=== PATIENT | male | born 1950 | race Caucasian/White ===

== ENCOUNTER 2019-01-15 17:27 | Inpatient (IN) ==
[2019-01-15] MEDS ORDERED: DILAUDID IV ONE ×2 (17:53→21:25)
[2019-01-15] MEDS ORDERED: ZOFRAN IV ONE (17:54)
--- NOTE | 2019-01-15 17:59 | PROVIDER DOCUMENTATION ---
HPI-Abdominal Pain/GI Problem - General Chief Complaint: Abdominal Pain Stated Complaint: ABDOMINAL PAIN Time Seen by Provider: 01/15/19 17:36 Source: patient Allergies/Adverse Reactions: Patient Allergies Allergy/AdvReac Type Severity Reaction Status Date / Time morphine Allergy HIVES Verified 01/15/19 18:05 Home Medications: Home Medication List Medication Instructions Recorded Confirmed Last Taken Type ATORVAstatin [Lipitor] 40 mg PO DAILY 01/15/19 01/15/19 01/15/19 History Aspirin [Bonnie Chewable Aspirin] 81 mg PO DAILY 01/15/19 01/15/19 01/15/19 History Lisinopril 1 tab PO DAILY 01/15/19 01/15/19 01/15/19 History Metoprolol Tartrate 50 mg PO DAILY 01/15/19 01/15/19 01/15/19 History Pioglitazone HCl 1 tab PO DAILY 01/15/19 01/15/19 01/15/19 History Sitagliptin Phos/Metformin HCl 1 tab PO BID 01/15/19 01/15/19 01/15/19 History [Janumet 50-1,000 mg Tablet] - History of Present Illness-ABD Nature of Presenting Problems: Patient is a 68 yowm who complains of RUQ and LUQ abdominal pain described as "soreness" since Sunday. Denies n/v/d, fever. Also c/o productive cough with yellow sputum and states the pain in his abdomen is worse when he coughs. Started Z-Pack today. Denies any other symptoms. Pt is non-toxic in appearance. Pain Radiation: reports: other (Right axilla) Review of Systems - Adult - REVIEW OF SYSTEMS - ADULT Constitutional: reports: no symptoms reported. denies: chills, fever Eyes: reports: no symptoms reported Ears, Nose, Mouth & Throat: reports: no symptoms reported Cardiovascular: reports: no symptoms reported Respiratory: reports: see HPI, cough. denies: chronic cough, dyspnea on exertion, excessive sputum production, hemoptysis, pleurisy, shortness of breath, wheezing Gastrointestinal: reports: see HPI, abdominal pain. denies: diarrhea, nausea, vomiting Genitourinary: reports: no symptoms reported Musculoskeletal: reports: no symptoms reported Integumentary: reports: no symptoms reported Neurological: reports: no symptoms reported Psychiatric: reports: no symptoms reported Endocrine: reports: no symptoms reported Hematologic/Lymphatic: reports: no symptoms reported Allergic/Immunologic: reports: no symptoms reported All Other Systems: Reviewed and Negative Past History - Adult - PAST MEDICAL HISTORY-ADULT Review of Records: reports: Nursing Assessment Review, Medications Reviewed, Social history reviewed & non-contributory. Major Childhood Illnesses: reports: denies history Cardiovascular: reports: CAD, HTN Respiratory: reports: denies history Gastrointestinal: reports: cancer (rectal- colostomy) Obstetrical/Gynecological: reports: denies history Musculoskeletal: reports: denies history Neurological: reports: denies history Psychiatric: reports: denies history Endocrine/Immune: reports: Diabetes Other Conditions: reports: denies history - PRIOR SURGERIES/PROCEDURES Surgical/Procedure History: reports: back/neck, other (Open heart, colostomy) - FAMILY HISTORY Family History: reviewed, not pertinent - SOCIAL HISTORY Smoking: quit greater than 1 year Physical Exam-General - PHYSICAL EXAM-ADULT Initial Vital Signs Reviewed: Yes - CONSTITUTIONAL General Appearance: alert, no apparent distress. negative: lethargic, slow to respond - EYES Eyes: pink conjunctivae - HEAD, EARS, NOSE, MOUTH & THROAT HENMT: normocephalic/atraumatic, moist mucous membranes - NECK Neck: non-tender, full range of motion, supple, normal inspection - RESPIRATORY Respiratory: chest non-tender, lungs clear, normal breath sounds, no pleuratic chest pain, no respiratory distress, no accessory muscle use - CARDIOVASCULAR Cardiovascular: normal peripheral pulses, regular rate, rhythm, no edema, no gallop, no JVD, no murmur - GASTROINTESTINAL (ABDOMEN) Abdominal Exam: normal bowel sounds, soft, no organomegaly, no pulsatile mass, tenderness (RUQ and LUQ, more in RUQ), other (Obese abdomen). negative: disten ded, guarding, rigid, rebound, hernia, mass, hepatomegaly, splenomegaly - MUSCULOSKELETAL Back Exam: normal inspection Extremity: normal range of motion, non-tender, normal gait, normal inspection - SKIN Integumentary: normal color, warm/dry. negative: cyanosis, diaphoresis, jaundice, mottled, pallor - NEUROLOGIC Neurologic: grossly normal, no motor/sensory deficits - PSYCHIATRIC Psych/Mental Status: normal mood/affect, normal thought content, normal thought process, oriented x 3 Progress - PLAN OF CARE/RESULTS Progress/Plan/Lab Results: Vital Signs - 8 hr 01/15/19 17:29 Temperature 98.2 F Pulse Rate 83 Respiratory Rate 18 Blood Pressure 168/124 O2 Sat by Pulse Oximetry 96 Orders Category Date Time Status Saline Loc NOW Care 01/15/19 17:54 Active CHEST-2 VIEWS [RAD] Stat Exams 01/15/19 17:52 Ordered AMYLASE [CHEM] Stat Lab 01/15/19 17:52 Uncollected CBC WITH DIFF [HEME] Stat Lab 01/15/19 17:52 Uncollected COMPREHENSIVE METABOLIC PANEL [CHEM] Stat Lab 01/15/19 17:52 Uncollected LIPASE [CHEM] Stat Lab 01/15/19 17:52 Uncollected TROPONIN T Stat Lab 01/15/19 17:52 Uncollected Hydromorphone [Dilaudid] Med 01/15/19 17:53 Discontinued 1 mg IV NOW ONE Ondansetron [Zofran] Med 01/15/19 17:54 Discontinued 4 mg IV NOW ONE EKG [EKG] Stat Ther 01/15/19 17:52 Ordered Pt opted to be admitted. Admitting HPS paged ([id number]). Result Diagrams: 01/15/19 18:00 01/15/19 18:00 - CONSULTS/PCP/HOSPITALIST Notification #1 *Consult/PCP/Hospitalist*: Dr. Lang Time Discussed: 21:23 Reason/Comments: cholecystitis Consult Disposition: other (States to give pt option to be admitted or to be discharged and follow up with him in the office tomorrow. Md states if pt decides to be admitted to admit to [facility] and consult him.) #2 Consult: Dr. Delarosa Time Discussed: 21:38 Consult Disposition: Will see in ED, Admit Departure - Departure Date of Disposition Decision: 01/16/19 Time of Disposition Decision: 21:38 DIAGNOSIS: Cholecystitis, Kidney stone on right side Disposition: ADMITTED INPATIENT 09 Certified Medical Emergency: Emergent Condition: Stable - Critical Care Note This patient required my direct & personal management of CC.: No Attestation - Physician/ YEIMI Attestation Patient care was provided by Advanced Practice Provider:: Yes Advanced Practice Provider:: Arvin Diamond Advanced Practice Provider documentation review:: The Mid-level provider documentation, treatment plan and medical decision making was reviewed by the physician who agrees with all treatment and medical decision making by the MLP. The physician spent face to face time with patient:: No Advanced Practice Provider documentation review:: Supervising physician onsite and consulted in the evaluation and care of this patient. The physician did not have a face to face encounter with the patient.
[2019-01-15 18:17] LABS: BASO# 0.03 X1000 (0.0-0.2); BASO% 0.3 % (0.0-0.8); EOS# 0.27 X1000 (0.0-0.7); EOS% 2.6 % (0.0-10.0); HEMATOCRIT 50.5 % (42.0-52.0); HEMOGLOBIN 16.5 g/dL (14.0-18.0); LYMPH# 1.01 X1000 (1.2-3.4); LYMPH% 9.7 % (20.5-51.1); MCH 28.7 PG (27-31); MCHC 32.7 g/dL (33-37); MONO# 1.01 X1000 (0.11-0.59); MONO% 9.7 % (1.7-9.3); MPV 11.5 FL (7.4-10.4); NEUT# 8.08 X1000 (1.4-6.5); NEUT% 77.7 % (42.2-75.2); PLT 189 X1000 (130-400); RBC 5.74 XMIL (4.7-6.1); RDW 15.7 % (11.5-14.5)
[2019-01-15 18:55] LABS: AGAP 14; ALB/GLOB RATIO 1.6; ALBUMIN 4.2 g/dL (3.5-5.0); ALKALINE PHOSPHATASE 79 U/L (32-122); AMYLASE 77 U/L (20-200); BUN 21 mg/dL (8-22); CALCIUM 9.4 mg/dL (8.8-10.2); CHLORIDE 99 mmol/L (98-107); COSMO 276; CREATININE 1.1 mg/dL (0.7-1.2); ESTIMATED GFR > 60; GLUCOSE 177 mg/dL (70-104); GOT 23 U/L (10-34); GPT 26 U/L (10-44); LIPASE 34 U/L (13-60); POTASSIUM 4.5 mmol/L (3.5-5.1); SODIUM 134 mmol/L (136-145); TCO2 21 mmol/L (25-35); TOTAL BILIRUBIN 0.68 mg/dL (0.20-1.00); TOTAL PROTEIN 6.8 g/dL (6.3-8.3)
--- NOTE | 2019-01-15 19:25 | Diag Imaging Result Doc PS360 ---
CHEST-2 VIEWS - 01/15/2019 INDICATION: cough COMPARISON: None FINDINGS: The lungs are normally expanded and clear. Heart size and mediastinal contours are normal. No pneumothorax or pleural effusion. There are median sternotomy wires. IMPRESSION: Negative exam. Electronically signed by Luis Alberto Rodriguez 01/15/2019 7:23 PM
--- NOTE | 2019-01-15 20:56 | Diag Imaging Result Doc PS360 ---
CT ABD/PELVIS W/IV CONT ONLY - 01/15/2019 INDICATION: upper abd pain, RUQ tenderness COMPARISON: None FINDINGS: The lung bases are clear and the heart size is normal. There are some small stones in the gallbladder. There is hazy edema around the gallbladder. No biliary dilation. There is a left nephroureteral stent in good position. There is been rectal resection and there is a left lower quadrant colostomy. No bowel obstruction or inflammation. There is significant diverticulosis throughout the colon. There is an obstructing right UVJ stone measuring 5 mm. There is moderate right hydroureteronephrosis. There are also some small nonobstructing left renal stones measuring up to 3 mm. Normal appendix. Prostate gland is atrophic. Urinary bladder is grossly normal. There are moderate degenerative changes of the spine. No acute or suspicious bony lesion. IMPRESSION: 1. Gallstones in the gallbladder. Gallbladder inflammation consistent with cholecystitis. 2. Obstructing right UVJ stone with moderate hydronephrosis. 3. There are couple small nonobstructing left renal stones. Left nephroureteral stent in good position. This exam was performed using automated exposure control, adjustment of mA or kV according to patient size, and/or use of iterative reconstruction technique Electronically signed by Luis Alberto Rodriguez 01/15/2019 8:54 PM
[2019-01-15 22:26] LABS: URINE SOURCE CLEAN CATCH
[2019-01-15 23:16] LABS: BILIRUBIN URINE NEGATIVE (NEGATIVE); BLOOD URINE MODERATE (NEGATIVE); COLOR YELLOW; GLUCOSE URINE TRACE mg/dL (NEGATIVE); KETONE URINE NEGATIVE (NEGATIVE); LEUKOCYTES URINE MODERATE (NEGATIVE); NITRITE URINE NEGATIVE (NEGATIVE); PH URINE 5.5; PROTEIN URINE 50 mg/dL (NEGATIVE); SP GRAVITY URINE 1.024; TURBIDITY URINE CLEAR (CLEAR); UROBILINOGEN URINE NORMAL (NORMAL)
[2019-01-15 23:26] LABS: UR EPITHELIAL CELLS <10 /HPF (<10); URINE BACTERIA NEGATIVE /HPF; URINE RBC <10 /HPF (<10); URINE WBC 20-40 /HPF (<10)
[2019-01-15] MEDS ORDERED: TYLENOL PO PRN (23:28)
[2019-01-15] MEDS ORDERED: ZOFRAN IV PRN (23:28)
[2019-01-15 23:41] LABS: URINE CASTS NONE SEEN; URINE CRYSTALS NONE SEEN; URINE SMALL ROUND CELLS NONE SEEN; URINE YEAST NONE SEEN
[2019-01-16] MEDS: ZOSYN 3.375 GM in NS 50 ML IV SCH ×5 (00:04→22:04)
[2019-01-16] MEDS: NS 1,000 ML IV SCH ×2 (00:04→10:05)
--- NOTE | 2019-01-16 00:04 | HISTORY AND PHYSICAL ---
PRIMARY CARE PROVIDER: Dr. Hernández. UROLOGIST: Dr. Ordonez in [place]. ONCOLOGIST: Dr. Burrows. DISPENSARY ATTENDANT: Dr. Carlton. DATE AND TIME: 01/15/2019 at 2215. CHIEF COMPLAINT: Abdominal pain. HISTORY OF PRESENT ILLNESS: Mr. Russo is a 68-year-old male who complains of a 4-day history of right upper quadrant and left upper quadrant abdominal pain. He describes the pain as sharp as though he has been kicked in the stomach. He reports the pain is more constant now. He is reporting at this time that it does radiate down into his right lower quadrant as well as up and around to his right upper back in his right shoulder blade area. He denies any nausea, vomiting, or diarrhea, though he does have a colostomy bag and states he has been noticing that he is having more frequent output in his colostomy. Though he reports that his stools are dark brown in color, he denied them being black or bloody in appearance. The patient also reports that he has had a productive cough with yellow sputum and has been having some sinus congestion and upper respiratory symptoms. He was seen by his doctor today was given antibiotic of a Z-Eliseo though has not started this medicine yet. He does report that he has frequent hematuria though he states that Dr. Ordonez, urologist in [place] has been monitoring this and he does have his renal stent replaced periodically. He denies any dysuria. He denies any pain, numbness tingling or swelling in extremities. He denies any dizziness, lightheadedness, chest pain or shortness of breath. Upon evaluation in the ER, patient was noted to be having right upper quadrant pain, right lower quadrant pain which was radiating around to his right flank, right back and right shoulder blade. He did have right CVA tenderness noted. He also had right upper quadrant tenderness and positive Paulino's sign. He was also tender in the right lower quadrant as well. Given his symptoms, they did perform a CT abdomen and pelvis with IV contrast only which showed that he did have gallstones in the gallbladder. There was a gallbladder inflammation consistent with cholecystitis. There was obstructing right UVJ stone with moderate hydronephrosis. There were also a couple of small nonobstructing left renal stones though his left nephroureteral stent was noted to be in good position. Patient will be admitted for further treatment and evaluation. REVIEW OF SYSTEMS: A 14 point review of systems was conducted with the patient and all were negative except for pertinent positives mentioned in above HPI. PAST MEDICAL HISTORY: 1. History of colorectal cancer status post colon resection with colostomy placement. The patient reports that he did receive chemotherapy and radiation and is followed by Dr. Burrows for this. 2. Coronary artery disease status post 1 vessel coronary artery bypass graft. 3. Diabetes mellitus. 4. Hyperlipidemia. 5. Hypertension. 6. History of renal stones with a left nephroureteral stent. PAST SURGICAL HISTORY: 1. One vessel coronary artery bypass graft. 2. Bowel resection secondary to colorectal cancer with colostomy placement. 3. Back surgery. 4. Neck surgery. 5. Left nephroureteral stent placement. SOCIAL HISTORY: The patient is a former smoker. He quit smoking 10 years ago though did smoke from his young teenage years until that time. He did smoke up to 3 packs a day at 1 point. He reports only occasional alcohol use. There is no known illicit drug use. His family was present at bedside during our examination. FAMILY HISTORY: Positive for his mother having a history of heart disease. His father had a history of heart disease and did pass away from a myocardial infarction at age 68. He does have brothers and sisters who do have similar medical problems exam as him which include heart disease and diabetes mellitus. ALLERGIES: Patient reports allergies to morphine. HOME MEDICATIONS: 1. Aspirin 81 mg p.o. daily. 2. Atorvastatin 40 mg p.o. daily. 3. Lisinopril 10 mg p.o. daily. 4. Metoprolol tartrate 50 mg p.o. daily. 5. Pioglitazone 45 mg tablet p.o. daily. 6. Janumet mg tablet 1 tablet p.o. b.i.d. DIAGNOSTIC STUDIES: White blood cell count is 10,400, hemoglobin 16.5, hematocrit 50.5, platelet count is 189. Sodium 134, potassium 4.5, chloride 99, serum bicarb is 21, BUN 21, creatinine 1.1, glucose 177, calcium 9.4. Liver function tests within normal limits. Troponin was less than 0.01. Amylase 77, lipase 34. Urinalysis is pending at this time. Chest x-ray showed no acute abnormality. This was per Radiology. CT abdomen and pelvis did show gallstones in the gallbladder with gallbladder inflammation consistent with cholecystitis. There was an obstructing right UVJ stone with moderate hydronephrosis. There are also a couple of small nonobstructing left renal stones and a left nephroureteral stent which is in good position. PHYSICAL EXAMINATION: VITAL SIGNS: Temperature 98 degrees, heart rate 93, respirations 19, blood pressure is 156/76, oxygen saturation is 97% on room air. GENERAL: Mr. Russo is a pleasant 68-year-old male who is resting in the ER stretcher. He is in no acute distress. He was awake, alert and able to answer all questions appropriately. HEENT: Head is atraumatic, normocephalic. Pupils are equal, round, reactive to light, were 3 mm bilaterally and brisk. Oral mucosa is moist. Oropharynx was clear. NECK: Supple. Trachea midline. No carotid bruits noted upon auscultation bilaterally. CARDIOVASCULAR: Patient has S1, S2 present. No murmurs, gallops or rubs appreciated. Regular rate and rhythm. PULMONARY: Patient has symmetrical chest expansion bilaterally. Lung sounds are clear to auscultation in bilateral full christian. ABDOMEN: Soft. Nondistended. The patient did report tenderness in right upper and right lower quadrant as well as right CVA tenderness. He did have a positive Paulino sign. Bowel sounds were present in all 4 quadrants, were normoactive. The patient did have a colostomy bag noted in left lower abdomen. EXTREMITIES: No cyanosis, clubbing or edema noted. Pulse, motor and sensory were intact in all extremities. Radial pulses and pedal pulses are 2+ bilaterally. INTEGUMENTARY: The patient's skin is pink, warm, and dry. NEUROLOGICAL: Patient is alert and oriented x4. He is able move all extremities. He did not have any focal neurological deficits noted. ASSESSMENT AND PLAN: 1. Acute cholecystitis. For treatment of this we have placed the patient to be NPO after midnight. We will provide fluid hydration with normal saline at 125 mL per hour. We have also placed orders for pain medicine and antiemetics as needed. We will also place him on antibiotic coverage with Zosyn 3.375 g IV q.6 hours. We have placed a consult with Dr. Lang with surgery and we will await his evaluation and further recommendations for management. 2. Obstructing right ureterovesical junction stone. We will continue with treatment as mentioned above with IV hydration, pain medicine and antiemetics as needed. We have placed a consult with Dr. Navarro with Urology and we will await his evaluation and further recommendations for management. 3. Coronary artery disease status post coronary artery bypass graft. We will continue the patient's aspirin and antihypertensive medications. 4. Diabetes mellitus type 2. Patient does take Actos and Janumet though he did receive IV contrast. Given this, we will hold these medicines at this time and place him on a sliding scale regular insulin per low-dose protocol. We will do pattern fingerstick blood sugars. 5. Recent diagnosis with upper respiratory infection. The patient had been prescribed a Z-Eliseo though had not started it yet. As mentioned above he will be receiving antibiotic of Zosyn IV q.6 hours. His chest x-ray did not show any acute abnormality. 6. Deep venous thrombosis prophylaxis will be provided with SCDs. We will hold any anticoagulants at this time until he is evaluated by Urology and Surgery. He has been placed on the medical floor with telemetry. Vital signs q.8 hours. We will do strict intake and output. Incentive spirometer. Repeat a CBC and CMP in the morning. Further orders and recommendations pending hospital course, diagnostic studies and physician evaluation. Dictated by MARCELINO Sheikh for Zoila Delarosa MD cc: Zoila Delarosa MD See dictated addendum MTDD
[2019-01-16] MEDS: PROTONIX IV SCH ×2 (00:05→22:06)
[2019-01-16] MEDS: SODIUM CHLORIDE 0.9% INJ SCH ×2 (00:05→22:06)
--- NOTE | 2019-01-16 00:15 | HISTORY AND PHYSICAL ---
ADDENDUM PRIMARY CARE PHYSICIAN: Dr. Hernández. SUMMARY: Patient was admitted because of right upper quadrant pain radiating from right upper quadrant down to his groin and up to his shoulder blade. Says he has had this pain for about 3 days but today it took a turn for the worse as the pain increased in intensity. Pain was also constant. He said coughing makes it worse. He has a past medical history of CAD, type 2 diabetes and hypertension. He also has a history of rectal cancer and has a colostomy. He admits to having subjective fever but no nausea, vomiting or diarrhea. He also has a cough productive of yellowish sputum. A CT scan was done which showed cholecystitis but was unquantified as to whether it is acute or chronic, and Dr. Lang, the surgeon, was called and he said as long as the patient has no white count or LFTs that he could either be admitted or could see him as an outpatient. Also, the CT scan did show a 5 mm stone at the right UVJ and with associated hydronephrosis. His exam was notable for positive Paulino sign and right CVA tenderness. Also had a colostomy bag which is almost left of center. Although other than that the rest of the exam was benign. Our plan is to admit him, hydrate him, treat him symptomatically for pain and nausea, empirically start him on Zosyn. Urinalysis is still pending. We will consult Urology and General Surgery will see him in the a.m. and we will still keep him on his aspirin and we will put him on sliding scale for diabetes. cc: MD Aislinn Parry MD
[2019-01-16 06:50] LABS: BASO# 0.02 X1000 (0.0-0.2); BASO% 0.1 % (0.0-0.8); EOS# 0.06 X1000 (0.0-0.7); EOS% 0.4 % (0.0-10.0); HEMATOCRIT 50.4 % (42.0-52.0); HEMOGLOBIN 16.4 g/dL (14.0-18.0); IMM GRAN# 0.02 X1000 (0.0-0.04); IMM GRAN% 0.1 % (0.0-0.5); LYMPH# 0.78 X1000 (1.2-3.4); LYMPH% 5.3 % (20.5-51.1); MCH 28.7 PG (27-31); MCHC 32.5 g/dL (33-37); MCV 88.1 FL (81-99); MONO# 1.75 X1000 (0.11-0.59); MONO% 11.9 % (1.7-9.3); MPV 11.4 FL (7.4-10.4); NEUT# 12.08 X1000 (1.4-6.5); NEUT% 82.2 % (42.2-75.2); PLT 162 X1000 (130-400); RBC 5.72 XMIL (4.7-6.1); RDW 15.9 % (11.5-14.5); WBC 14.71 X1000 (4.8-10.8)
[2019-01-16 06:56] LABS: INR 0.93; PROTIME 13.2 Seconds (11.0-16.0)
--- NOTE | 2019-01-16 07:00 | GENERAL SURGERY CONSULTATION ---
DATE: 01/16/2019 CHIEF COMPLAINT: Right-sided abdominal pain. HISTORY OF PRESENT ILLNESS: This is a 68-year-old patient who complains of some right-sided abdominal pain. It has been causing him trouble the last couple of days. He has had burping and belching, and indigestion for the past 2 weeks. He presents to the emergency department because of the pain. CT scan suggests acute cholecystitis. There did appear to be inflammation around the gallbladder. On his CT scan, it also shows a nonobstructing stone with some hydronephrosis on the right. PAST MEDICAL HISTORY: Pertinent for rectal cancer for which he has had an abdominoperineal resection by Dr. Marquise Abdul. He has also had coronary bypass back in the late s. He has had no cardiac issues since then. He has a history of diabetes, hyperlipidemia, hypertension, in addition to the kidney stones. PAST SURGICAL HISTORY: Previous surgeries include coronary artery bypass, abdominoperineal resection with permanent colostomy, back surgery, neck surgery, and the left ureteral stent placement. SOCIAL HISTORY: He is a former smoker. Drinks alcohol occasionally. No illicit drug use. FAMILY HISTORY: Pertinent for heart disease. MEDICATIONS AT HOME: Include aspirin, atorvastatin, lisinopril, metoprolol, glitazone, and Janumet. ALLERGIES: Morphine, according to the patient. REVIEW OF SYSTEMS: Otherwise negative. PHYSICAL EXAMINATION: His temperature is 99.3 degrees, heart rate 103, blood pressure 138/66. No cervical adenopathy. Bilateral breath sounds. Heart has regular rate and rhythm. Abdomen is soft. He is tender in the right upper quadrant. He has a stoma in the left lower quadrant. LABORATORY DATA: White count is 10,400, hemoglobin 16.5. Liver tests are all normal. He has some blood in his urine. ASSESSMENT: Acute cholecystitis. PLAN: The plan will be a laparoscopic cholecystectomy. I discussed the procedure with him, the benefits and risks including bile duct injury, bile leak, infection, bleeding, or anesthetic complications. He understands and wants to proceed. cc: Aiden Lang MD
[2019-01-16 07:04] LABS: AGAP 10; ALB/GLOB RATIO 1.3; ALKALINE PHOSPHATASE 73 U/L (32-122); BUN 14 mg/dL (8-22); CALCIUM 9.2 mg/dL (8.8-10.2); CHLORIDE 102 mmol/L (98-107); COSMO 273; CREATININE 1.1 mg/dL (0.7-1.2); ESTIMATED GFR > 60; GLUCOSE 148 mg/dL (70-104); GOT 17 U/L (10-34); GPT 23 U/L (10-44); SODIUM 135 mmol/L (136-145); TCO2 23 mmol/L (25-35); TOTAL PROTEIN 7.1 g/dL (6.3-8.3)
--- NOTE | 2019-01-16 07:53 | EKG Report ---
Test Performed on : 01/15/2019 6:22:20 PM Test Reason : upper abdominal pain Blood Pressure : / mmHG Vent. Rate : 080 BPM Atrial Rate : 080 BPM P-R Int : 188 ms QRS Dur : 100 ms QT Int : 366 ms P-R-T Axes : 237 220 129 degrees QTc Int : 422 ms Unusual P axis, possible ectopic atrial rhythm. Incomplete right bundle branch block Lateral infarct , age undetermined Inferior infarct , age undetermined Abnormal ECG No previous ECGs available Unconfirmed Result
[2019-01-16] MEDS: HUMULIN R SUBQ SCH ×4 (08:07→21:09)
[2019-01-16] MEDS: PRINIVIL PO SCH (08:31)
[2019-01-16] MEDS: ASPIRIN PO SCH (08:31)
[2019-01-16] MEDS: LOPRESSOR PO SCH (08:34)
[2019-01-16] MEDS: DILAUDID IV PRN ×3 (10:30→22:04)
[2019-01-16] MEDS: LIPITOR PO SCH (10:34)
[2019-01-16] MEDS ORDERED: DIPRIVAN 1% ONE (13:05)
[2019-01-16] MEDS ORDERED: SENSORCAINE-MPF 0.5%/EPI 1:200,000 ONE (13:35)
[2019-01-16] MEDS ORDERED: SODIUM CHLORIDE 0.9% ONE (13:35)
[2019-01-16] MEDS ORDERED: LR 1,000 ML ONE (13:35)
[2019-01-16] MEDS ORDERED: FENTANYL ONE (13:56)
--- NOTE | 2019-01-16 15:56 | Diag Imaging Result Doc PS360 ---
EXAM: OPERATIVE CHOLANGIOGRAM INDICATION: CHOLECYSTITIS TECHNIQUE: COMPARISON: None. FINDINGS: A single fluoroscopic image was provided, which was performed during cholecystectomy by Dr. Aiden Lang. The common bile duct is not opacified. There is contrast pooling around the region of the gallbladder fossa and a thin line of contrast that extends from this inferiorly out of the [id number]. This may be contrast outlining the falciform ligament. There is no contrast seen in small bowel. IMPRESSION: As above. Please correlate with live fluoroscopic imaging. Electronically signed by Faisal Dowd 01/16/2019 3:54 PM
--- NOTE | 2019-01-16 18:21 | OPERATIVE NOTE ---
PROCEDURE DATE: 01/16/2019 PROCEDURE PERFORMED: Laparoscopic cholecystectomy with attempted cholangiogram. SURGEON: Aiden Lang MD. UPS DRIVER: Ludin. PREOPERATIVE DIAGNOSIS: Acute/chronic cholecystitis. POSTOPERATIVE DIAGNOSIS: Acute/chronic cholecystitis. FINDINGS: The cystic duct was obstructed and we could not get a good visualization of the common duct on our cholangiogram. The gallbladder was thick-walled and obviously inflamed. DESCRIPTION OF PROCEDURE: Satisfactory general endotracheal anesthesia was achieved. The abdomen was prepped and draped in a sterile fashion. An Ioban drape was used due to the patient's colostomy. We anesthetized the skin below the umbilicus. We carried our incision down to the fascia, scored the fascia, and introduced an 11 trocar Optiview technique. We insufflated through this trocar. There was omentum stuck up to the anterior abdominal wall, but we found an opening in the omentum that allowed us to get into the right abdomen and right upper quadrant. Under direct visualization, I used an 11 trocar in the midepigastrium, a 5 trocar in the midclavicular line, and a 5 trocar near the anterior axillary line. We placed the patient in reverse Trendelenburg and turned him to the left. We dissected the omentum off the fundus of the gallbladder. It was noted to be distended and thick-walled. We introduced an aspirating needle and aspirated the fluid out of the gallbladder. This allowed us to grasp the fundus of the gallbladder with a ratcheted Allis clamp. We reflected it cephalad, and then began dissection of the triangle of Calot. We obtained a critical view. I clipped the cystic duct near the junction of the gallbladder, incised the cystic duct, and again we attempted the cholangiogram, but failed to get a good cholangiogram because of the cystic duct obstruction. We then removed the cholangiogram catheter, clipped the cystic duct on the opposite side, and did a cystic ductotomy x3. We then transected the cystic duct. The cystic artery was clipped proximally x2, distally x1, and divided. The cautery spatula was then used to dissect the gallbladder away from the liver. After complete separation of gallbladder from the liver, we changed the video laparoscope. Through the mid epigastric trocar, we introduced an EndoCatch, placed the gallbladder within the bag, and delivered it out of the abdominal cavity. We looked back. We irrigated and aspirated, and hemostasis was satisfactory. We aspirated what fluid escaped from the gallbladder. We then flattened the patient, desufflated, and removed our trocars. We placed a 2-0 Polysorb fascial stitch in the epigastrium, 2-0 Polysorb fascial stitch x2 in the umbilical site. We then closed the skin at each incision with 4-0 Polysorb subcuticular stitches. Sterile OpSites were applied. He tolerated it well and was sent to the recovery room in satisfactory condition. cc: Aiden Lang MD
--- NOTE | 2019-01-16 18:37 | CONSULTATION ---
DATE OF CONSULTATION: 01/16/2019 REQUESTING PHYSICIAN: Jeffy Elise MD REASON FOR CONSULTATION: Right obstructing ureteral stone with hydronephrosis, right flank pain. HISTORY OF PRESENT ILLNESS: A 68-year-old male with history of left ureteral stricture which has been managed with left ureteral stents, and urolithiasis. He presented on 01/15/2019 with abdominal pain on the right side, from right upper quadrant all the way down to his groin as well as associated nausea. The patient reports his previous stone episode was over a year ago. He reports he had ureteral stent exchange by Dr. Ordonez in [place] in 11/2018. He currently has right upper and lower quadrant flank pain. It is sharp. It is intermittent. It radiates toward the lower part of the groin. He reports subjective chills and nausea. He denies gross hematuria or dysuria. PAST MEDICAL HISTORY: Colorectal cancer, ureteral stricture, coronary artery disease, diabetes mellitus, hyperlipidemia, hypertension, urolithiasis. PAST SURGICAL HISTORY: Colectomy with end colostomy, coronary artery bypass grafting, back surgery, neck surgery, serial left ureteral stent exchanges, endoscopic renal stone extraction. ALLERGIES: Morphine. HOME MEDICATIONS: Aspirin, atorvastatin, lisinopril, metoprolol, pioglitazone, Janumet. FAMILY HISTORY: Negative for malignancies. Positive for coronary artery disease and diabetes. SOCIAL HISTORY: Former smoker. Denies alcohol or illicit drug use. REVIEW OF SYSTEMS: Reviewed and 12 systems negative except as in the HPI. PHYSICAL EXAMINATION: T 98.7 degrees, P 127, BP 127/77. General: No acute distress. HEENT: Normocephalic, atraumatic. Cardiovascular: Tachycardic, regular rhythm. Pulmonary: Bilateral breath sounds. Abdomen nontender to palpation on the left, tender to palpation on the right. Positive right CVA tenderness. No involuntary guarding noted. Colostomy is on the left abdominal quadrant. : Bladder is nontender to palpation. Meatus is patent. Penile shaft is without masses or lesions. Testes are atrophic but descended bilaterally. Perineal structural integrity is intact. Digital rectal examination was deferred at this time. Dermatologic: No obvious skin rashes. Lymphatic: No groin lymphadenopathy. No cervical lymphadenopathy. Neurologic: Alert and oriented x3. Psychiatric: Appropriate mood and affect. LABORATORY DATA: White cell count is 15,000, creatinine is 1.1. Urinalysis is positive for blood but negative for bacteria. DIAGNOSTIC DATA: CT abdomen and pelvis on 01/15/2019 revealing small left renal stones; left ureteral stent in decent position; 5 mm right distal ureteral stone with significant associated hydroureteronephrosis. ASSESSMENT AND PLAN: A 68-year-old male with leukocytosis, right flank pain, right distal obstructing ureteral stone as well as concern for cholecystitis. The patient was already evaluated by Dr. Lang and decision has been made for the patient to undergo a laparoscopic cholecystectomy. I have discussed with the patient that his right flank pain radiating to the groin could be related to both gallbladder issues as well as the stone. I have discussed with him that he could have cholecystectomy and then proceed with observation, with medical expulsive therapy, and that he had about 40% to 50% chance of passing the stone. We discussed that if he did not want to wait or continued to have pain, he would benefit from cystoscopy with right ureteroscopy, laser lithotripsy, stone basket extraction and placement of ureteral stent on the right. The patient and his family present at bedside would like to proceed with endoscopic removal of the stone after his gallbladder is addressed. I discussed the risks of the procedure with the patient including, but not limited to, bleeding, infection, injury to the bladder, injury to adjacent structures, inability to remove the stone, and need for additional interventions explained. Given that he had his left ureteral stent exchange in November, we agreed not to change the left stent at this time. The patient voiced understanding and wants to proceed. PLAN: 1. He will proceed with Dr. Lang for laparoscopic cholecystectomy as scheduled. 2. NPO after midnight tomorrow. 3. To operating room tomorrow for cystoscopy, right ureteroscopy, laser lithotripsy, stone basket extraction and placement of right ureteral stent. Thank you for the consultation. cc: Kush Navarro MD
[2019-01-16] MEDS: PERIDEX MT SCH (21:11)
--- NOTE | 2019-01-16 22:48 | PROGRESS NOTE ---
DATE: 01/16/2019 SUBJECTIVE: The patient is seen postoperatively, doing well. OBJECTIVE: Blood pressure was 100/82, heart rate of 85, temperature 98.7 degrees, 93% on 4 L. Cardiovascular: Regular rate and rhythm. Pulmonary: Bilateral breath sounds, clear to auscultation. GI was soft, nontender, nondistended. Bowel sounds were positive. Extremity exam: No clubbing or cyanosis. Lymphatic exam: No peripheral edema. LABORATORY DATA: White count 14, hemoglobin and hematocrit 16 and 50, platelets 162,000. Sodium 135, creatinine 1.1. ASSESSMENT AND PLAN: Problem list: 1. Cholecystitis, status post laparoscopic cholecystectomy. He seems to be doing better from that standpoint. Continue antibiotics, surgical care, and follow. 2. Ureteropelvic junction stone with obstruction. Plan for cystoscopy and JJ stent replacement. We will continue antibiotics in the meantime. 3. Coronary artery disease. Appears to be stable. 4. Diabetes. Continue medications, sliding scale and follow closely. 5. Disposition: He wants to go home tomorrow, dependent on how he does overall. He still has a persistent oxygen requirement, so we will need to get that evaluated first. cc: Jeffy Elise MD
[2019-01-16 23:02] LABS: AGAP 9; ALB/GLOB RATIO 1.1; ALBUMIN 3.2 g/dL (3.5-5.0); ALKALINE PHOSPHATASE 54 U/L (32-122); BUN 12 mg/dL (8-22); CALCIUM 8.5 mg/dL (8.8-10.2); CHLORIDE 108 mmol/L (98-107); COSMO 284; CREATININE 1.1 mg/dL (0.7-1.2); ESTIMATED GFR > 60; GLUCOSE 158 mg/dL (70-104); GOT 20 U/L (10-34); GPT 27 U/L (10-44); POTASSIUM 4.5 mmol/L (3.5-5.1); SODIUM 141 mmol/L (136-145); TCO2 24 mmol/L (25-35); TOTAL BILIRUBIN 1.23 mg/dL (0.20-1.00); TOTAL PROTEIN 6.1 g/dL (6.3-8.3)
[2019-01-17] MEDS: ZOSYN 3.375 GM in NS 50 ML IV SCH ×4 (00:30→11:18)
[2019-01-17] MEDS: PROTONIX IV SCH (00:31)
[2019-01-17] MEDS ORDERED: DIPRIVAN 1% ONE (06:11)
[2019-01-17 06:31] LABS: BASO# 0.01 X1000 (0.0-0.2); BASO% 0.1 % (0.0-0.8); EOS# 0.02 X1000 (0.0-0.7); EOS% 0.2 % (0.0-10.0); HEMOGLOBIN 15.2 g/dL (14.0-18.0); IMM GRAN# 0.02 X1000 (0.0-0.04); IMM GRAN% 0.2 % (0.0-0.5); LYMPH# 0.76 X1000 (1.2-3.4); LYMPH% 6.6 % (20.5-51.1); MCH 28.6 PG (27-31); MCHC 31.7 g/dL (33-37); MCV 90.4 FL (81-99); MONO% 9.5 % (1.7-9.3); MPV 11.2 FL (7.4-10.4); NEUT# 9.64 X1000 (1.4-6.5); NEUT% 83.4 % (42.2-75.2); PLT 160 X1000 (130-400); RBC 5.31 XMIL (4.7-6.1); RDW 16.1 % (11.5-14.5); WBC 11.55 X1000 (4.8-10.8)
[2019-01-17] MEDS ORDERED: BACITRACIN ONE (06:32)
[2019-01-17] MEDS ORDERED: DUONEB (A & A) INH SCH (09:00)
[2019-01-17] MEDS: DILAUDID IV PRN (09:11)
[2019-01-17] MEDS: ASPIRIN PO SCH (09:12)
[2019-01-17] MEDS: LIPITOR PO SCH (09:12)
[2019-01-17] MEDS: PRINIVIL PO SCH (09:12)
[2019-01-17] MEDS: LOPRESSOR PO SCH (09:12)
[2019-01-17] MEDS: PERIDEX MT SCH (09:12)
[2019-01-17] MEDS ORDERED: NORCO-10 PO ONE (09:56)
[2019-01-17] MEDS: HUMULIN R SUBQ SCH (11:00)
--- NOTE | 2019-01-17 11:08 | GENERAL SURGERY PROGRESS NOTE ---
DATE: 01/17/2019 SUBJECTIVE: Ms. Russo is now 1 day after his laparoscopic cholecystectomy. He feels better. OBJECTIVE: Vital Signs: He is afebrile. Heart rate 66, blood pressure 125/61. General: He has taken liquid satisfactory, had his ureteral stent placed today as well. DIAGNOSTICS/LABS: White count 11,000. ASSESSMENT: In view of his progress, it is certainly okay with me that he go home. I have asked him to avoid fatty foods for 1 week. He will return to see me in the office in followup. cc: Aiden Lang MD
[2019-01-17 13:36] VITALS: BP 137/75
--- NOTE | 2019-02-04 06:50 | ED EKG INTERP ---
This chart was entered by Arsalan Chase Scribe, acting as scribe for Anjelica Ortega MD. EKG Interpretation - EKG Time of EKG reading by physician:: 18:22 EKG Read and Signed by:: Anjelica Ortega EKG Interpretation (*Must complete 3 of following elements*): Abnormal Rate: 80 Rhythm: Unusual P axis, possible ectopic atrial rhythm QRS: RBB (Incompletd) Comments: Lateral and inferior infart, age undetermined Attestation - Physician/ YEIMI Attestation Patient care was provided by Advanced Practice Provider:: Yes Advanced Practice Provider documentation review:: The Mid-level provider documentation, treatment plan and medical decision making was reviewed by the physician who agrees with all treatment and medical decision making by the MLP. The physician spent face to face time with patient:: No Advanced Practice Provider documentation review:: Supervising physician onsite and consulted in the evaluation and care of this patient. The physician did not have a face to face encounter with the patient. This chart was documented by the indicated scribe, (Arsalan Chase Scribe) and accurately reflects the services I performed and decisions made by me, Anjelica Ortega MD, as attested by the provider's signature.
--- NOTE | 2019-02-17 08:09 | OPERATIVE NOTE ---
PROCEDURE DATE: 01/17/2019 SURGEON: Kush Navarro MD. PREOPERATIVE DIAGNOSES: 1. A 5 mm right ureteral stone. 2. Hydronephrosis. 3. Flank pain. PROCEDURE PERFORMED: Cystoscopy, right ureteroscopy, stone basket extraction of the ureteral stone. INDICATIONS: A 68-year-old male with a history of urolithiasis who has been followed by another urologist. He presented to the hospital with nausea, and abdominal and flank pain. He was found to have both acute cholecystitis and a 5 mm right distal ureteral stone with hydronephrosis. He had his gallbladder removed a day prior and now presents for treatment of the ureteral stone. FINDINGS: Successful extraction of the ureteral stone with a basket. The stone was given to the family as patient states he has had his stones analyzed before. DESCRIPTION OF PROCEDURE: After obtaining informed consent, the patient was brought to the operating room. Perioperative antibiotics and laryngeal mask anesthesia were administered. He was placed in a lithotomy position, prepped and draped in a sterile fashion. A 21-And[place] rigid cystoscope was used to gain access to the urethra and the bladder. His prostatic urethra exhibited bilobar prostatic hypertrophy with some obstruction. His bladder showed no evidence of mucosal lesions. There were a few trabeculations but no sizable diverticula and no stones within the bladder lumen. We turned attention to the right ureteral orifice which was cannulated with a PTFE wire. It was advanced to the level of the right renal pelvis, as confirmed fluoroscopically. We then introduced a right rigid ureteroscope alongside of the wire. The stone was seen several centimeters away from the ureteral orifice. It appeared to be in unfavorable orientation. A 0 Nitinol basket was used to position it more favorably and then extract it in one piece. Repeat ureteroscopy to the level of mid to proximal ureter showed no evidence of residual stone fragments, no evidence of ureteral injury. The ureteroscope was then slowly withdrawn. Upon withdrawal, we noted that he did not have significant mucosal edema and, hence, we elected not to place a ureteral stent. The bladder was emptied, cystoscope was removed, he was extubated, and taken to the PACU for further recovery. ESTIMATED BLOOD LOSS: None. COMPLICATIONS: None. DISPOSITION: To PACU and back to the floor with prescription for Percocet 7.5 p.r.n. (#15) and Bactrim DS (#10). cc: Kush Navarro MD MTDD
== END 2019-01-17 14:20 | disposition home or self-care (01) | DRG 418 ==
LOC: ED 17:27 → SUATTDRO 23:10 → 4N 23:10
PROVIDERS: ATTEND Internal Medicine
CPT/HCPCS: 71020; 71046; 74177; 74300; 76000; 80053; 81001; 82150; 82948; 83690; 84484; 85025; 85610; 87088; 88304; 93005; 94760; 94799; 96374; 96375; 96376; 99285; A9270; C9113; J1170; J2405; J2543; J3010; J7030; J7120; Q9966; Q9967; S0164; XXXXX